=== PATIENT | female | born 1950 | race Caucasian/White ===

== ENCOUNTER 2019-11-14 16:12 | Emergency (ER) | payer MEDICARE, SELFPAY ==
[2019-11-14 15:40] VITALS: BP 132/62; PULSE 73; RESP 16; TEMP 36.9; O2SAT 100
--- NOTE | 2019-11-14 16:13 | ED_ITS ---
HPI - Abdominal Pain General Chief Complaint: Recheck/Abnormal Lab/Rx Stated Complaint: Infection Time Seen by Provider: 11/14/19 16:13 Source: EMS Mode of arrival: EMS Limitations: no limitations History of Present Illness HPI narrative: 69-year-old female nonsmoker with recent bowel obstruction and subsequent exploratory laparotomy at [facility] presents by EMS from a local rehab facility for suspected infection of the incision site. The patient arrived at the facility earlier today after being discharged and nursing staff noted erythema and minimal tenderness to the superior right side of her i ncision. There is no dehiscence or drainage. The patient denies any fever or shaking chills. She does feel weak and complains of pain when she moves but is otherwise well. She states the redness was there when she was discharged. She is passing gas but denies any bowel movements. MD complaint: abdominal pain Onset (ago): day(s) Pain Consistency: constant Severity: mild Quality: cramping Radiation: none Migration to: no migration Relieving factors: rest Exacerbating factors: movement Context: recent surgery/procedure Associated symptoms: nausea Related Data Home Medications Medication Instructions Recorded Confirmed bupropion HCl 3 each PO DAILY 08/18/19 08/18/19 estrogen patch TRANSDERMAL 2XW 08/18/19 pravastatin 20 mg tablet 20 mg PO DAILY 08/18/19 08/18/19 sertraline 100 mg tablet 200 mg PO DAILY tab 08/18/19 08/18/19 triamterene 37.5 1 cap PO DAILY 08/18/19 08/18/19 mg-hydrochlorothiazide 25 mg capsule acetaminophen 500 mg tablet 1,000 mg PO DAILY PRN tab 10/27/19 10/27/19 Previous Rx's Medication Instructions Recorded celecoxib 200 mg capsule 200 mg PO DAILY #30 cap 08/18/19 cyclobenzaprine 10 mg tablet 10 mg PO BID PRN #60 tab 08/18/19 diazepam 10 mg tablet 10 mg PO .COMPLEX PRN #10 tab 10/27/19 Allergies Allergy/AdvReac Type Severity Reaction Status Date / Time Sulfa (Sulfonamide Allergy patient Verified 10/27/19 14:32 Antibiotics) can't remember reaction erythromycin base AdvReac GI upset Verified 10/27/19 14:32 procaine [From Novocain] AdvReac decreased Verified 02/05/20 14:32 blood pressure Review of Systems Constitutional Constitutional: Denies chills, Denies fatigue, Denies fever(s), Denies frequent falls, Denies lethargy and Denies weakness Eyes Eyes: Denies change in vision, Denies eye discharge, Denies irritation and Denies loss of vision ENT Ears, Nose, Mouth, and Throat: Denies change in voice, Denies dizziness, Denies neck pain, Denies sore throat and Denies throat swelling Cardiovascular Cardiovascular: Denies chest pain, Denies irregular heart rhythm, Denies lightheadedness, Denies palpitations, Denies dyspnea, Denies dyspnea on exertion and Denies orthopnea Respiratory Respiratory: Denies cough, Denies dyspnea, Denies dyspnea on exertion and Denies wheezing Gastrointestinal Gastrointestinal: Reports abdominal pain, Denies change in bowel habits, Denies diarrhea, Denies nausea and Denies vomiting Genitourinary Genitourinary: Denies hematuria, Denies flank pain, Denies urinary incontinence and Denies urinary urgency Musculoskeletal Musculoskeletal: Denies back pain, Denies muscle weakness, Denies neck pain, Denies numbness and Denies tingling Integumentary/Breasts Skin/Breast: Denies pruritus, Reports erythema, Denies rash, Reports skin pain and Denies wounds Neurologic Neurologic: Denies behavioral changes, Denies confusion, Denies dizziness, Denies frequent falls, Denies loss of vision, Denies numbness, Denies tingling and Denies weakness Psychiatric Psychiatric: Denies anxiety, Denies behavioral changes, Denies confusion, Denies depression, Denies homicidal ideation and Denies suicidal ideation Endocrine Endocrine: Denies fatigue, Denies flushing and Denies palpitations Hematologic/Lymphatic Hematologic/Lymphatic: Denies easy bruising Allergic/Immunologic Allergic/Immunologic: Denies urticaria, Denies throat swelling and Denies wheezing Patient History Family History Mother Parkinsons disease Father Heart disease Social History marital status: lives independently: Yes Smoking Status: Former smoker Smoking Status: Former smoker Exam Narrative Exam Narrative: GENERAL: [69] year old patient appears stated age. Well- nourished, well-developed patient, in mild distress. HEAD: Atraumatic. Normocephalic. EYES: Pupils equal round and reactive. Extraocular motions intact. No scleral icterus. No injection or drainage. ENT: Nose without bleeding, purulent drainage. Throat without erythema, tonsillar hypertrophy or exudate. Airway patent. NECK: Trachea midline. Non tender CARDIOVASCULAR: Regular rate and rhythm without murmurs, gallops, or rubs. RESPIRATORY: Clear to auscultation. Breath sounds equal bilaterally. No wheezes, rales, or rhonchi. GASTROINTESTINAL: Abdomen soft, minimally tender at the midline incision which is clean, dry and intact. There is an area of erythema and Wei to the superior aspect of the incision without underlying induration or fluctuance, nondistended. EXTREMITIES: No edema or joint tenderness. BACK: Nontender without deformity or crepitance. No flank tenderness. NEURO: AOx3. SKIN: No rash or erythema of visible areas Initial Vital Signs Initial Vital Signs: Vital Signs Temperature 98.5 F 11/14/19 15:40 Pulse Rate 73 11/14/19 15:40 Respiratory Rate 16 11/14/19 15:40 Blood Pressure 132/62 11/14/19 15:40 Pulse Oximetry 100 11/14/19 15:40 Course Orders Ordered: ED Orders 11/14/19 16:23 Basic Metabolic Panel Stat Complete Blood Count AUTO DIFF Stat Lactate (Lactic Acid) Stat Procalcitonin Stat 11/14/19 16:47 CT abdomen pelvis w con Stat Consultations Consultation #1: Discussion with on-call surgeon at [place], recommendation is CT scan with IV contrast call back upon completion. They are quite comfortable with patient going home, I share this opinion. Patient given return precautions. She understands and agrees with the plan Vital Signs Vital signs: Vital Signs - 8 hr 11/14/19 15:40 11/14/19 18:01 11/14/19 18:38 Temperature 98.5 F Pulse Rate 73 72 75 Respiratory Rate 16 Blood Pressure 132/62 125/59 L Blood Pressure [Left Arm] 136/62 Pulse Oximetry 100 98 98 MDM - Abdominal Pain Lab Data Result diagrams: 11/14/19 16:23 11/14/19 16:23 Labs: Lab Results 11/14/19 11/14/19 11/14/19 Range/Units 16:23 16:23 16:23 WBC 11.9 H (4.5-11.0) X10^3/uL RBC 3.78 L (4.0-5.2) X10^6/uL Hgb 11.3 L (12.0-16.0) g/dL Hct 33.7 L (36-46) % MCV 89.2 (80-100) fL MCH 30.0 (26-34) PG MCHC 33.7 (30-36) % RDW 12.8 (11.6-14.8) % Plt Count 445 H (150-400) X10^3/uL Neut % (Auto) 70.3 (50-75) % Lymph % (Auto) 12.1 L (25-40) % [place] % (Auto) 10.8 (3-14) % Eos % (Auto) 6.4 H (2-4) % Baso % (Auto) 0.4 (0-2) % Neut # (Auto) 8300 H (0601-4908) /uL Lymph # (Auto) 1400 (7718-8540) /uL [place] # (Auto) 1300 H (0-900) /uL Eos # (Auto) 800 H (0-450) /uL Baso # (Auto) 0 (0-100) /uL Sodium 129 L (137-145) mmol/L Potassium 4.0 (3.4-5.1) mmol/L Chloride 95 L (98-107) mmol/L Carbon Dioxide 24 (22-32) mmol/L BUN 23 H (7-17) mg/dL Creatinine 0.60 (0.52-1.04) mg/dL Estimated GFR > 60.0 (>60) mL/min BUN/Creatinine Ratio 38.3 H (6-22) Glucose 107 (80-110) mg/dL Lactate (0.7-2.1) mmol/L Calcium 9.4 (8.4-10.2) mg/dL Procalcitonin < 0.05 (<0.5) ng/mL 11/14/19 Range/Units 16:23 WBC (4.5-11.0) X10^3/uL RBC (4.0-5.2) X10^6/uL Hgb (12.0-16.0) g/dL Hct (36-46) % MCV (80-100) fL MCH (26-34) PG MCHC (30-36) % RDW (11.6-14.8) % Plt Count (150-400) X10^3/uL Neut % (Auto) (50-75) % Lymph % (Auto) (25-40) % [place] % (Auto) (3-14) % Eos % (Auto) (2-4) % Baso % (Auto) (0-2) % Neut # (Auto) (6213-3982) /uL Lymph # (Auto) (7120-7960) /uL [place] # (Auto) (0-900) /uL Eos # (Auto) (0-450) /uL Baso # (Auto) (0-100) /uL Sodium (137-145) mmol/L Potassium (3.4-5.1) mmol/L Chloride (98-107) mmol/L Carbon Dioxide (22-32) mmol/L BUN (7-17) mg/dL Creatinine (0.52-1.04) mg/dL Estimated GFR (>60) mL/min BUN/Creatinine Ratio (6-22) Glucose (80-110) mg/dL Lactate 0.7 (0.7-2.1) mmol/L Calcium (8.4-10.2) mg/dL Procalcitonin (<0.5) ng/mL Discharge Plan Departure Patient Disposition: Home Clinical Impression: Feared complaint without diagnosis Activity Restrictions/Additional Instructions: *You have been diagnosed with [ well check, post operative exam ] *What to do: *Take medications as directed *Follow up with your primary care provider in 2-3 days, call for an appointment. Let them know you were seen in the Emergency Department and that we ask that you be seen in follow up *Return to ER if you should have any new, worsening or concerning symptoms Prescriptions: No Action triamterene-hydrochlorothiazid 37.5-25 mg capsule 1 cap PO DAILY RF: 0 sertraline 100 mg tablet 200 mg PO DAILY RF: 0 bupropion HCl 3 each PO DAILY RF: 0 pravastatin 20 mg tablet 20 mg PO DAILY RF: 0 estrogen patch transdermal 2XW RF: 0 celecoxib [Celebrex] 200 mg capsule 200 mg PO DAILY Qty: 30 RF: 2 cyclobenzaprine 10 mg tablet 10 mg PO BID PRN (Reason: muscle spasm) Qty: 60 RF: 1 acetaminophen [Tylenol Extra Strength] 500 mg tablet 1,000 mg PO DAILY PRNRF: 0 diazepam [Valium] 10 mg tablet 10 mg PO .COMPLEX PRN (Reason: anxiety) Qty: 10 RF: 0 Referrals: Symone Jack MD [Primary Care Provider] -
[2019-11-14 16:32] LABS: Add Manual Diff / Slide Review NO; Basophils Absolute Auto 0 /uL (0-100); Basophils Percent Auto 0.4 % (0-2); Eosinophils Absolute Auto 800 /uL (0-450); Eosinophils Percent Auto 6.4 % (2-4); Hematocrit 33.7 % (36-46); Hemoglobin 11.3 g/dL (12.0-16.0); Lymphocytes Absolute Auto 1400 /uL (1100-4500); Lymphocytes Percent Auto 12.1 % (25-40); Mean Corpuscular HGB Conc 33.7 % (30-36); Mean Corpuscular Volume 89.2 fL (80-100); Monocytes Absolute Auto 1300 /uL (0-900); Monocytes Percent Auto 10.8 % (3-14); Neutrophils Absolute Auto 8300 /uL (1500-7000); Neutrophils Percent Auto 70.3 % (50-75); Platelet Count 445 X10^3/uL (150-400); Red Blood Cell Count 3.78 X10^6/uL (4.0-5.2); Red Cell Distribution Width 12.8 % (11.6-14.8); White Blood Cell Count 11.9 X10^3/uL (4.5-11.0)
[2019-11-14 16:45] LABS: Lactate (Lactic Acid) 0.7 mmol/L (0.7-2.1)
[2019-11-14 16:46] LABS: BUN Creatinine Ratio 38.3 (6-22); Blood Urea Nitrogen 23 mg/dL (7-17); Calcium 9.4 mg/dL (8.4-10.2); Carbon Dioxide 24 mmol/L (22-32); Chloride 95 mmol/L (98-107); Estimated Glomerular Filt Rate > 60.0 mL/min (>60); Glucose 107 mg/dL (80-110); HEMOLYSIS 37 (0-50); Sodium 129 mmol/L (137-145)
--- NOTE | 2019-11-14 16:47 | DI.CT.S_ITS ---
PROCEDURE: CT ABDOMEN PELVIS W CON INDICATIONS: post operative infection? TECHNIQUE: After the administration of intravenous contrast, 5 mm thick sections acquired from the diaphragm to the symphysis. 5 mm coronal and sagittal reformats were acquired. For radiation dose reduction, the following was used: automated exposure control, adjustment of mA and/or kV according to patient size. COMPARISON: None. FINDINGS: Image quality: Excellent. ABDOMEN: Lung bases: Lung bases are clear. Heart size is normal. Solid organs: Liver is normal in size and enhancement. Gallbladder is normal. Biliary system is non dilated. Pancreas enhances normally. Spleen is normal in size and enhancement. No adrenal nodules. Kidneys demonstrate normal size and enhancement, without hydronephrosis. Peritoneum and bowel: A small to moderate amount of free fluid is present in the pelvis demonstrating subtle peripheral enhancement. There is a trace amount of free fluid around the liver and in paracolic gutters bilaterally. Bowel loops demonstrate normal wall thickness and caliber. No free fluid or air. Nodes and vessels: No retroperitoneal or mesenteric adenopathy by size criteria. Aorta and inferior vena cava are normal in size. Miscellaneous: No ventral hernias. There is a surgical scar in the anterior abdominal wall at the midline with skin tucker. There is mild thickening along the surgical scar. A tiny 7 mm oval hypodensity left of the surgical scar the level of the umbilicus is noted. There is 1.3 cm oval-shaped fat density superior to umbilicus along the surgical scar demonstrating peripheral hyperdensity, consistent with a small fat necrosis. PELVIS: Genitourinary: Bladder wall thickness is normal. Miscellaneous: No inguinal hernias or adenopathy. Bones: No suspicious bony lesions. No vertebral body compression fractures. IMPRESSION: 1. A small to moderate amount of free fluid in the peritoneal cavity. There is subtle peripheral enhancement in the pelvis. Cannot rule out early abscess formation. 2. There is a surgical scar in the anterior abdominal wall at the midline with skin tucker. A tiny 7 mm oval hypodensity left of the surgical scar the level of the umbilicus is noted, which could represent a tiny abscess. 3. A 1.3 cm oval-shaped fat density with peripheral hyperdensity in the superior aspect of the surgical scar is consistent fat necrosis Dictated by: Augusto Paredes M.D. on 11/14/2019 at 17:32 Approved by: Augusto Paredes M.D. on 11/14/2019 at 17:43
[2019-11-14 17:01] LABS: Procalcitonin < 0.05 ng/mL (<0.5)
[2019-11-14 18:01] VITALS: BP 136/62; PULSE 72; O2SAT 98
[2019-11-14 18:38] VITALS: BP 125/59; PULSE 75; O2SAT 98
== END 2019-11-14 19:22 | disposition home or self-care (01) ==
PROVIDERS: Emergency Provider Emergency Medicine; PCP Family Medicine
DX: Z98.890 Other specified postprocedural states (principal); R10.9 Unspecified abdominal pain
CPT/HCPCS: 36415; 74177; 80048; 83605; 84145; 85025; 99284; Q9967

== ENCOUNTER → 2019-11-23 10:07 | Outpatient (ROUT) | payer SELFPAY ==
[2019-11-23 10:12] LABS: Add Manual Diff / Slide Review NO; Basophils Absolute Auto 100 /uL (0-100); Basophils Percent Auto 0.9 % (0-2); Eosinophils Absolute Auto 400 /uL (0-450); Eosinophils Percent Auto 3.9 % (2-4); Hematocrit 34.8 % (36-46); Lymphocytes Absolute Auto 1400 /uL (1100-4500); Lymphocytes Percent Auto 12.7 % (25-40); Mean Corpuscular HGB Conc 34.4 % (30-36); Mean Corpuscular Hemoglobin 30.2 PG (26-34); Mean Corpuscular Volume 87.7 fL (80-100); Monocytes Absolute Auto 1100 /uL (0-900); Monocytes Percent Auto 9.3 % (3-14); Neutrophils Absolute Auto 8300 /uL (1500-7000); Neutrophils Percent Auto 73.2 % (50-75); Platelet Count 555 X10^3/uL (150-400); Red Blood Cell Count 3.97 X10^6/uL (4.0-5.2); Red Cell Distribution Width 12.7 % (11.6-14.8); White Blood Cell Count 11.4 X10^3/uL (4.5-11.0)
[2019-11-23 10:24] LABS: Alanine Aminotransferase 15 IU/L (<35); Albumin Globulin Ratio 1.1 (1.0-2.8); Alkaline Phosphatase 62 U/L (38-126); Aspartate Aminotransferase 24 IU/L (14-36); BUN Creatinine Ratio 14.3 (6-22); Bilirubin Total 0.2 mg/dL (0.2-1.3); Blood Urea Nitrogen 10 mg/dL (7-17); Calcium 9.3 mg/dL (8.4-10.2); Carbon Dioxide 26 mmol/L (22-32); Chloride 96 mmol/L (98-107); Estimated Glomerular Filt Rate > 60.0 mL/min (>60); Globulin 3.5 g/dL (1.7-4.1); Glucose 98 mg/dL (80-110); HEMOLYSIS < 15 (0-50); Potassium 3.2 mmol/L (3.4-5.1); Sodium 134 mmol/L (137-145); Total Protein 7.5 g/dL (6.3-8.2)
[2019-11-23 11:07] LABS: Thyroid Stimulating Hormone 1.48 uIU/mL (0.47-4.68)
== END ==
PROVIDERS: PCP Family Medicine; Visit Provider Internal Medicine
DX: Z79.899 Other long term (current) drug therapy (principal)
CPT/HCPCS: 80053; 84443; 85025